=== PATIENT | male | born 1970 | race Caucasian/White ===

== ENCOUNTER 2023-06-12 02:34 | Emergency (ER) | payer BC, OTHER ==
[2023-06-12 02:46] VITALS: BP 165/65; PULSE 88
[2023-06-12] MEDS: Take Home: Acetaminophen/HYDROcodone 325-5 MG, 5 Tab Pack PO ONE (02:47)
== END 2023-06-12 02:57 | disposition home or self-care (01) ==
LOC: VM.ED 02:34
DX: M54.50 Low back pain, unspecified (principal); Z79.899 Other long term (current) drug therapy
CPT/HCPCS: 99283; A9270-GY